=== PATIENT | male | born 1970 | race Caucasian/White ===

== ENCOUNTER 2016-11-04 00:10 | Emergency (ER) | payer OTHER ==
[~2016-11-04] VITALS: Ht 175.3 cm; Wt 87.5 kg
[2016-11-04 02:27] LABS: BASO % 1 % (0-3); EOS % 3 % (0-3); HEMATOCRIT 41.7 % (39.0-53.0); LYMPH # 1.7 x10^3/uL (1.0-4.8); LYMPH % 25 % (24-48); MEAN CORPUSCULAR HEMOGLOBIN 31 pg (25-35); MEAN CORPUSCULAR HGB CONC 36 g/dL (31-37); MEAN CORPUSCULAR VOLUME 87 fL (79-100); MONO % 7 % (0-9); NEUT % 65 % (31-73); PLATELET COUNT 179 x10^3/uL (140-400); RED CELL DISTRIBUTION WIDTH 13.1 % (11.5-14.5); WHITE BLOOD COUNT 6.9 x10^3/uL (4.0-11.0)
[2016-11-04 02:45] VITALS: BP 140/89
[2016-11-04 02:47] LABS: ALBUMIN/GLOBULIN RATIO 0.9 (1.0-1.7); CALCIUM 8.9 mg/dL (8.5-10.1); CREATININE 1.1 mg/dL (0.7-1.3); GFR 72.1; POTASSIUM 3.5 mmol/L (3.5-5.1); TOTAL BILIRUBIN 0.7 mg/dL (0.2-1.0); TOTAL PROTEIN 8.3 g/dL (6.4-8.2)
--- NOTE | 2016-11-04 03:35 | PHYS DOC ---
Past Medical History Past Medical History: Other Additional Past Medical Histor: cervical and lumber bulging disks, borderline htn Past Surgical History: No Surgical History Alcohol Use: None Drug Use: None Adult General Chief Complaint Chief Complaint: NEURO SYMPTOMS/DEFICITS HPI HPI Patient is a 46 year old gentleman who presents here today complaining of feeling lightheaded with some tingling in his right hand. Patient reports that he coughed approximately 10 PM start feeling lightheaded followed by that he had a small headache that now is completely resolved. Patient reports he also has some tingling in his right upper extremity. Patient reports that that symptom is completely resolved as well too. Patient has any weakness to his upper or lower 70s. Patient has any slurring his speech. Patient denies any facial asymmetry. Patient has any fevers shakes chills nausea vomiting diarrhea or URI symptoms chest pain shortness of breath. Patient denies any double vision or blurred vision. Patient has no past medical history. Patient has any hypertension diabetes liver longer kidney problems. Patient has had no surgeries. Patient is not smoke drink or do any drugs. Patient is not allergic to any medications. 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 Patient reports no heavy work. 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 0330 Patient reports that currently he feels completely asymptomatic and feels very comfortable with going home. I discussed with the patient all his lab results and a CT scan. Patient feels very comfortable with the plan to be discharged home at this time and [place] Patient was instructed to take a baby aspirin every day. Patient's physical exam is unremarkable. He has a nonfocal neuro exam. He is alert awake oriented 3. Cranial nerves II-12 are intact. Sensations intact in his upper or lower extremities and equal bilaterally. Patient has no paresthesias to his face. Patient is 5 out of 5 upper or lower some restraint. Patient's cerebellar exam is normal. Patient's pupils were equally round and reactive to light. His extraocular motions were intact. There is no nystagmus. Was regular rate and rhythm. Lungs were clear. Abdomen was benign. Patient's hospital course here was significant for normal labs and a CT scan that was unremarkable. Assessment and plan this is a 46-year-old gentleman who presents here today with cough, lightheadedness, headache and tingling in his right hand that occurred approximately 10 PM and is currently completely resolved. Etiology is unclear. This is possibly a pinched nerve. We worked him up for a possible small stroke however his workup in the ER is unremarkable and his symptoms are very highly inconsistent with a small stroke. Patient will be discharged home in stable condition. I advised the patient taken aspirin until he is able to follow-up with his private care physician to further assess the symptoms. Review of Systems Review of Systems Constitutional: Denies fever or chills [] Eyes: Denies change in visual acuity, redness, or eye pain [] HENT: Denies nasal congestion or sore throat [] All other review systems are negative except as documented in the history of present illness portion. Physical Exam Physical Exam Constitutional: Well developed, well nourished, no acute distress, non-toxic appearance. [] HENT: Normocephalic, atraumatic, bilateral external ears normal, oropharynx moist, no oral exudates, nose normal. [] Eyes: PERRLA, EOMI, conjunctiva normal, no discharge. [] Neck: Normal range of motion, no tenderness, supple, no stridor. [] Cardiovascular:Heart rate regular rhythm, no murmur [] Lungs & Thorax: Bilateral breath sounds clear to auscultation [] Abdomen: Bowel sounds normal, soft, no tenderness, no masses, no pulsatile masses. [] Skin: Warm, dry, no erythema, no rash. [] Back: No tenderness, no CVA tenderness. [] Extremities: No tenderness, no cyanosis, no clubbing, ROM intact, no edema. [] Neurologic: Alert and oriented X 3, normal motor function, normal sensory function, no focal deficits noted. [] Psychologic: Affect normal, judgement normal, mood normal. [] Current Patient Data Vital Signs Vital Signs Date Time Temp Pulse Resp B/P (MAP) Pulse Ox O2 Delivery O2 Flow Rate FiO2 11/04/16 01:25 52 20 140/89 (106) 99 Room Air 11/04/16 00:10 98.0 98.0 Lab Values Laboratory Tests Test 11/04/16 00:51 White Blood Count 6.9 x10^3/uL (4.0-11.0) Red Blood Count 4.80 x10^6/uL (4.30-5.70) Hemoglobin 15.0 g/dL (13.0-17.5) Hematocrit 41.7 % (39.0-53.0) Mean Corpuscular Volume 87 fL (79-100) Mean Corpuscular Hemoglobin 31 pg (25-35) Mean Corpuscular Hemoglobin Concent 36 g/dL (31-37) Red Cell Distribution Width 13.1 % (11.5-14.5) Platelet Count 179 x10^3/uL (140-400) Neutrophils (%) (Auto) 65 % (31-73) Lymphocytes (%) (Auto) 25 % (24-48) Monocytes (%) (Auto) 7 % (0-9) Eosinophils (%) (Auto) 3 % (0-3) Basophils (%) (Auto) 1 % (0-3) Neutrophils # (Auto) 4.4 x10^3uL (1.8-7.7) Lymphocytes # (Auto) 1.7 x10^3/uL (1.0-4.8) Monocytes # (Auto) 0.5 x10^3/uL (0.0-1.1) Eosinophils # (Auto) 0.2 x10^3/uL (0.0-0.7) Basophils # (Auto) 0.0 x10^3/uL (0.0-0.2) Sodium Level 139 mmol/L (136-145) Potassium Level 3.5 mmol/L (3.5-5.1) Chloride Level 103 mmol/L (98-107) Carbon Dioxide Level 26 mmol/L (21-32) Anion Gap 10 (6-14) Blood Urea Nitrogen 11 mg/dL (8-26) Creatinine 1.1 mg/dL (0.7-1.3) Estimated GFR (Cockcroft-Gault) 72.1 BUN/Creatinine Ratio 10 (6-20) Glucose Level 95 mg/dL (70-99) Calcium Level 8.9 mg/dL (8.5-10.1) Total Bilirubin 0.7 mg/dL (0.2-1.0) Aspartate Amino Transferase (AST) 24 U/L (15-37) Alanine Aminotransferase (ALT) 48 U/L (16-63) Alkaline Phosphatase 78 U/L (46-116) Troponin I Quantitative < 0.017 ng/mL (0.000-0.055) Total Protein 8.3 g/dL (6.4-8.2) H Albumin 4.0 g/dL (3.4-5.0) Albumin/Globulin Ratio 0.9 (1.0-1.7) L Laboratory Tests 11/04/16 00:51 Laboratory Tests 11/04/16 00:51 EKG EKG [] Radiology/Procedures Radiology/Procedures [] Course & Med Decision Making Course & Med Decision Making Laboratory Tests Test 11/04/16 00:51 White Blood Count 6.9 x10^3/uL Red Blood Count 4.80 x10^6/uL Hemoglobin 15.0 g/dL Hematocrit 41.7 % Mean Corpuscular Volume 87 fL Mean Corpuscular Hemoglobin 31 pg Mean Corpuscular Hemoglobin Concent 36 g/dL Red Cell Distribution Width 13.1 % Platelet Count 179 x10^3/uL Neutrophils (%) (Auto) 65 % Lymphocytes (%) (Auto) 25 % Monocytes (%) (Auto) 7 % Eosinophils (%) (Auto) 3 % Basophils (%) (Auto) 1 % Neutrophils # (Auto) 4.4 x10^3uL Lymphocytes # (Auto) 1.7 x10^3/uL Monocytes # (Auto) 0.5 x10^3/uL Eosinophils # (Auto) 0.2 x10^3/uL Basophils # (Auto) 0.0 x10^3/uL Sodium Level 139 mmol/L Potassium Level 3.5 mmol/L Chloride Level 103 mmol/L Carbon Dioxide Level 26 mmol/L Anion Gap 10 Blood Urea Nitrogen 11 mg/dL Creatinine 1.1 mg/dL Estimated GFR (Cockcroft-Gault) 72.1 BUN/Creatinine Ratio 10 Glucose Level 95 mg/dL Calcium Level 8.9 mg/dL Total Bilirubin 0.7 mg/dL Aspartate Amino Transf (AST/SGOT) 24 U/L Alanine Aminotransferase (ALT/SGPT) 48 U/L Alkaline Phosphatase 78 U/L Troponin I Quantitative < 0.017 ng/mL Total Protein 8.3 g/dL Albumin 4.0 g/dL Albumin/Globulin Ratio 0.9 Pertinent Labs and Imaging studies reviewed. (See chart for details) [] Dragon Disclaimer Dragon Disclaimer This electronic medical record was generated, in whole or in part, using a voice recognition dictation system. Departure Departure Impression: Primary Impression: Headache Additional Impression: Paresthesias Disposition: HOME, SELF-CARE Condition: IMPROVED Referrals: NO PCP (PCP) Patient Instructions: General Headache Without Cause, Paresthesia Additional Instructions: Please follow up with your doctor in the next 24-48 hours. I would recommend that he take a baby aspirin every day. Return to the ER for any further problems concerns or symptoms. Problem Qualifiers ROSALINDA SHAH MD November 04, 2016 03:35
--- NOTE | 2016-11-04 10:40 | EKG ---
[facility] [address] [place] [address] Test Date: 2016-11-04 Test Time: 00:23:11 Pat Name: JAYSHREE ANDERSON Department: Room: Gender: M Production Line Assembler: : 1970 Requested By: ROSALINDA SHAH Order Number: [id number] Reading MD: Jose Jacobson Measurements Intervals [place] Rate: 51 P: 23 VA: 164 QRS: -4 QRSD: 90 T: 1 QT: 424 QTc: 393 Interpretive Statements SINUS RHYTHM Electronically Signed On 11-08-2016 9:29:55 CDT by Jose Jacobson
--- NOTE | 2016-11-04 13:11 | RAD ---
Exam performed: CT scan of the head without contrast. Date of Service: 11/04/16. Comparison: None available. Clinical History: Lightheadedness and numbness to the right arm Technique: Helical acquisitions are obtained from the foramen magnum to the vertex without intravenous administration of contrast. Findings: The ventricles are midline without evidence of dilatation. Normal mast-white differentiation is maintained. There is no extra axial fluid collection, intraparenchymal hemorrhage or mass lesion. The visualized portions of the orbits, paranasal sinuses and the mastoid air cells appear clear. The calvarium is intact. Impression: 1. No acute intracranial process detected. PQRS Compliance Statement: One or more of the following individualized dose reduction techniques were utilized for this examination: 1. Automated exposure control 2. Adjustment of the mA and/or kV according to patient size 3. Use of iterative reconstruction technique
== END 2016-11-04 03:44 | disposition home or self-care (01) ==
LOC: ER 00:10
DX: R51 Headache (principal); R20.9 Unspecified disturbances of skin sensation
CPT/HCPCS: 36415; 70450; 80053; 84484; 85027; 93005; 99285-25

== ENCOUNTER → 2018-04-13 | Outpatient (CLI) | payer OTHER ==
--- NOTE | 2018-04-13 16:26 | KCIC ---
MRI bilateral knee dated 04/13/2018 2:45 PM Indication: Knee pain no known injury .. Comparison: No comparison is available. Technique: Routine multiplanar multisequence imaging performed. . Findings left knee:. Bone marrow signal is homogeneous. No marrow edema. Mild hypertrophic change at all 3 knee compartments. Mild thinning of the articular cartilage with no full-thickness cartilage defect. Small joint effusion. No intra-articular loose body. No significant popliteal cyst. Anterior cruciate and posterior cruciate ligaments intact. Medial and lateral collateral complexes intact. Iliotibial band, popliteus tendon and pes anserine complex within normal limits. Quadriceps and patellar tendon are intact. No abnormality of the medial or lateral retinaculum. Both menisci are normal in morphology and signal. No articular surface tear or perimeniscal cyst. Impression left knee: 1. No evidence of internal derangement. 2. Minimal tricompartmental degenerative change and chondral malacia. Findings right knee:. Bone marrow signal is homogeneous. No marrow edema. Mild hypertrophic change at all 3 knee compartments. Mild thinning of the articular cartilage throughout. Near full-thickness cartilage fissuring at the lateral aspect of the medial femoral condyle. There is also probable full-thickness cartilage fissuring at the medial patellar facet. Small joint effusion. No intra-articular loose body. No significant popliteal cyst. Anterior cruciate and posterior cruciate ligaments intact. Medial and lateral collateral complexes intact. Iliotibial band, popliteus tendon and pes anserine complex within normal limits. Quadriceps and patellar tendon are intact. No abnormality of the medial or lateral retinaculum. Both menisci are normal in morphology and signal. No articular surface tear or perimeniscal cyst. Impression right knee: 1. No evidence of internal derangement. 2. Mild tricompartmental degenerative arthrosis and chondromalacia. There is suspected small areas of full-thickness cartilage fissuring at the anterior and medial compartment. Electronically signed by: Karthik Diaz MD (04/13/2018 4:23 PM) [id number]
== END | disposition home or self-care (01) ==
LOC: KCIC MRI 14:29
PROVIDERS: ATTEND Orthopaedic Surgery
DX: M17.0 Bilateral primary osteoarthritis of knee (principal); M94.262 Chondromalacia, left knee; M94.261 Chondromalacia, right knee
CPT/HCPCS: 73721